=== PATIENT | female | born 1950 | race Caucasian/White ===

== ENCOUNTER 2018-05-03 07:49 | Day surgery (SDC) | payer OTHER ==
[2018-05-03] MEDS ORDERED: TETRACAINE HCL 0.5% 2ML OPTH ONE (08:29)
[2018-05-03] MEDS ORDERED: CYCLOPENTOLATE 1% OPTH 2 ML ONE (08:29)
[2018-05-03] MEDS ORDERED: LIDOCAINE 2% MPF 5 ML VIAL ONE (08:29)
[2018-05-03] MEDS ORDERED: PHENYLEPHRINE 10% OPTH 5ML ONE (08:30)
[2018-05-03] MEDS ORDERED: BUPIVACAINE 0.25% PF 30 ML VIAL ONE (08:30)
[2018-05-03] MEDS ORDERED: NA CHLORIDE 0.9% 500 ML ONE (08:30)
[2018-05-03] MEDS ORDERED: CYCLOPENTOLATE 1% OPTH 2 ML OPTH ONE ×2 (08:40→08:45)
[2018-05-03] MEDS ORDERED: PHENYLEPHRINE 10% OPTH 5ML OPTH ONE ×2 (08:40→08:45)
[2018-05-03] MEDS: DUOVISC 1 KIT OPTH ONE ×2 (09:37→10:19)
[2018-05-03] MEDS: EPINEPHRINE/PF 1 MG/ML AMP ONE ×2 (09:37→10:19)
[2018-05-03] MEDS: BSS PLUS 500 ML BOTTLE IRR ONE ×2 (09:37→10:19)
[2018-05-03] MEDS: MOXIFLOXACIN HCL 10 DROPS/ML **OR USE OPTH ONE ×2 (09:43→10:19)
[2018-05-03] MEDS ORDERED: LIDOCAINE 1% MPF 5 ML VIAL ONE (09:56)
[2018-05-03] MEDS ORDERED: PROPOFOL 200 MG/20 ML VIAL IV ONE (09:57)
--- NOTE | 2018-05-03 10:40 | P.BOP ---
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
--- NOTE | 2018-05-03 22:02 | OP ---
Date of Procedure: 05/03/2018 Surgeon: Margarita Newman MD Anesthesiologist: Shaun Camacho CRNA and Jenaro Mckeon M.D. Preoperative Diagnosis: Nuclear sclerotic cataract and cortical cataract and Fuchs dystrophy, OD (left eye). Operation Performed: Phacoemulsification with intraocular lens implant, OD eye. Anesthesia: Per cataract surgery. Complications: None. Description Of Procedure: In day surgery, the patient was prepped with Betadine and draped. A conjunctival incision was made in the inferior nasal quadrant with Tricia scissors. A sub-Tenon block consisting of a 1:1 mixture of 2% Xylocaine and 0.25% bupivacaine was placed through the conjunctival incision with a blunt cannula. A Honan balloon was placed over the eye and the patient was transferred to the operating room. In the operating room, the patient was prepped and draped in the usual sterile fashion for ophthalmic surgery. A lid speculum was placed in the OD. Two paracentesis sites were made superiorly and inferiorly in the limbal cornea. Viscoat was placed in the anterior chamber and a crescent blade was used to make a corneal groove and tunnel, and a keratome was used to enter the anterior chamber. Provisc was placed in the anterior chamber and a 360-degree capsulotomy was performed with a cystitome. The lens was hydrodissected with BSS and rotated freely. The lens was removed with a stop and chop technique. A 4.29 phaco CDE was used to remove the lens. Residual cortex was removed with the irrigation and aspiration. Provisc was placed in the capsular bag. A ZCB00 +24.0 diopter lens was placed in the capsular bag without complications. Irrigation and aspiration were used to remove residual viscoelastic. The paracentesis sites were hydrated with BSS. The wound and paracentesis sites were inspected and found to be watertight. Vigamox 0.07 cc was placed intracamerally at the end of the procedure. The eye was irrigated with balanced salt solution. The eye was patched with a soft cotton patch and Castano metal shield. The patient was returned to day surgery in good condition. Comments: BSS+ was used and a scleral incision was created. Discharge Instructions: Ms. Walker is discharged to home in good condition. She is to follow up Dr. Newman today at 3:30 and then in the morning. JHL/JORDAN Voice ID: [id number] Report ID: [id number] YASMIN
== END 2018-05-03 11:15 | disposition home or self-care (01) ==
LOC: OR 07:49
PROVIDERS: ATTEND Ophthalmology Retina Specialist
PROC: 08RK3JZ Replacement of Left Lens with Synthetic Substitute, Percutaneous Approach (ICD-10-PCS; principal; 2018-05-03 09:30)
DX: H25.12 Age-related nuclear cataract, left eye (principal); H25.012 Cortical age-related cataract, left eye; H18.51 Endothelial corneal dystrophy
CPT/HCPCS: 66984; J0171

== ENCOUNTER 2018-06-21 11:31 | Day surgery (SDC) | payer OTHER ==
[2018-06-21] MEDS ORDERED: PHENYLEPHRINE 10% OPTH 5ML ONE (11:55)
[2018-06-21] MEDS ORDERED: CYCLOPENTOLATE 1% OPTH 2 ML ONE (11:55)
[2018-06-21] MEDS ORDERED: NA CHLORIDE 0.9% 500 ML ONE ×2 (11:55→13:18)
[2018-06-21] MEDS ORDERED: CYCLOPENTOLATE 1% OPTH 2 ML OPTH ONE ×2 (12:08→12:13)
[2018-06-21] MEDS ORDERED: PHENYLEPHRINE 10% OPTH 5ML OPTH ONE ×2 (12:08→12:13)
[2018-06-21] MEDS: TETRACAINE HCL 0.5% 2ML OPTH ONE ×2 (12:16→13:06)
[2018-06-21] MEDS: LIDOCAINE 2% MPF 5 ML VIAL ONE ×2 (12:17→13:06)
[2018-06-21] MEDS ORDERED: EPINEPHRINE/PF 1 MG/ML AMP ONE (12:17)
[2018-06-21] MEDS: BUPIVACAINE 0.25% PF 10 ML VIAL ONE ×2 (12:17→13:06)
[2018-06-21] MEDS ORDERED: DUOVISC 1 KIT OPTH ONE (12:18)
[2018-06-21] MEDS ORDERED: BSS PLUS 500 ML BOTTLE IRR ONE (12:18)
[2018-06-21] MEDS ORDERED: MOXIFLOXACIN HCL 10 DROPS/ML **OR USE OPTH ONE (12:18)
[2018-06-21] MEDS ORDERED: NS 0.9% VIAL 10 ML ONE (12:21)
[2018-06-21] MEDS ORDERED: PROPOFOL 200 MG/20 ML VIAL IV ONE (13:09)
[2018-06-21] MEDS ORDERED: LIDOCAINE 2% MPF 5 ML VIAL ONE (13:09)
--- NOTE | 2018-06-21 13:53 | P.BOP ---
Preoperative diagnosis: Nuclear sclerotic and cortical cataract, Fuch's dystrophy OS Postoperative diagnosis: Same Primary procedure: Phacoemulsification with IOL OS Estimated blood loss: None Anesthesia: Local (Subtenon's infusion with anesthesia for cataract surgery) Complications: None Implants: ZCB00 +24.0 Transferred to: Other (Day surgery) Condition: Good
--- NOTE | 2018-06-22 01:26 | OP ---
Date of Procedure: 06/21/2018 Surgeon: Margarita Newman MD Anesthesiologist: 1. Ramana Mcintyre C.R.N.A. 2. Jenaro Mckeon M.D. Preoperative Diagnosis: Nuclear sclerotic cataract, cortical cataract, and Fuchs dystrophy, left eye . Operation Performed: Phacoemulsification with intraocular lens implant, left eye. Anesthesia: Per cataract surgery. Complications: None. Description Of Procedure: In day surgery, the patient was prepped with Betadine and draped. A conju nctival incision was made in the inferior nasal quadrant with Tricia scissors. A sub-Tenon block c onsisting of a 1:1 mixture of 2% Xylocaine and 0.25% bupivacaine was placed through the conjunctival incision with a blunt cannula. A Honan balloon was placed over the eye and the patient was transferr ed to the operating room. In the operating room the patient was prepped and draped in the usual sterile fashion for ophthalmic surgery. A lid speculum was placed in the left eye. Two paracentesis sites were made superiorly and inferiorly in the limbal cornea. Viscoat was placed in the anterior chamber and a crescent blade wa s used to make a corneal groove and tunnel, and a keratome was used to enter the anterior chamber. P rovisc was placed in the anterior chamber and a 360 degree capsulotomy was performed with a cystitome . The lens was hydrodissected with BSS and rotated freely. The lens was removed with a stop and cho p technique. 3.99 Phaco CDE was used to remove the lens. Residual cortex was removed with the irrig ation and aspiration. Provisc was placed in the capsular bag. A ZCB00 + 24.[address] in the capsular bag without complications. Irrigation and aspiration were used to remove residual viscoelastic. The paracentesis sites were hydrated with BSS. The wound and paracentesis sites were inspected and found to be watertight. Vigamox 0.07 cc was placed intracamerally at the end of the pr ocedure. The eye was irrigated with balanced salt solution. The eye was patched with a soft cotton patch and Castano metal shield. The patient was returned to day surgery in good condition. Comments: BSS Plus was used. The conjunctiva was incised temporally with Tricia scissors. Bipola r cautery was used for hemostasis. The scleral incision was created. Extra Viscoat was used. Bipol ar cautery was used to reapproximate the conjunctiva at the end of the procedure. Discharge Instructions: Ms. Walker is discharged to home in good condition and is to follow up with Candice Newman this afternoon, and then in the morning. RAJNI/JORDAN Voice ID: [id number] Report ID: [id number]
== END 2018-06-21 14:20 | disposition home or self-care (01) ==
LOC: OR 11:31
PROVIDERS: ATTEND Ophthalmology Retina Specialist
PROC: 08RK3JZ Replacement of Left Lens with Synthetic Substitute, Percutaneous Approach (ICD-10-PCS; principal; 2018-06-21 11:30)
DX: H25.12 Age-related nuclear cataract, left eye (principal); H25.012 Cortical age-related cataract, left eye; H18.51 Endothelial corneal dystrophy; H40.24 Residual stage of angle-closure glaucoma; E07.9 Disorder of thyroid, unspecified; E78.00 Pure hypercholesterolemia, unspecified; Z83.511 Family history of glaucoma
CPT/HCPCS: 66984; J0171

== ENCOUNTER 2025-02-27 13:35 | Day surgery (SDC) | payer OTHER ==
[2025-02-09 16:07] LABS: Absolute Eosinophils 0.1 K/uL (0-0.5); Absolute Lymphocytes (CBC) 2.2 K/uL (0.7-4.9); Absolute Monocytes 0.4 K/uL (0.1-1.3); Absolute Neutrophil 3.7 K/uL (1.8-8.0); Basophils % 0.5 % (0-1.3); Eosinophils % 1.7 % (0-4.4); Hematocrit 36.1 % (36.0-45.0); Hemoglobin 12.1 g/dL (12.0-15.0); Lymphocytes % 34.1 % (15.3-44.8); MCH 29.1 pg (27.0-35.0); MCHC 33.6 g/dL (32.0-36.0); MCV 86.5 fL (80-100); Monocytes % 6.3 % (3.3-12.3); Neutrophils % 57.4 % (41.7-73.7); Platelets 215 thou/uL (152-406); RBC Red Blood Cell Count 4.17 M/uL (3.86-4.86); Red Cell Distribution Width 14.8 % (12.1-15.2)
[2025-02-09 16:09] LABS: Anion Gap 9.2 mEq/L (5.0-15.0); Potassium 3.2 mEq/L (3.5-5.1)
[2025-02-09 16:11] LABS: PT Prothrombin Time 11.4 SECONDS (10-13.0); PTT, Activated Partial Thromb 31.5 SECONDS (27.2-37.4)
--- NOTE | 2025-02-09 16:32 | RAD REPORT ---
Procedure: Chest Pa And Lat (2 Views) HISTORY: Preop for cardiac catheterization. History of Aortic stenosis. COMPARISON: none FINDINGS: The lungs appear clear of acute infiltrate. No significant pleural effusion noted. The heart is normal size. IMPRESSION: No acute abnormality is displayed.
--- NOTE | 2025-02-13 11:33 | EKG ---
Test Date: 2025-02-09 Test Time: 15:23:29 Furnace Room Supervisor: SUHAIL MEASUREMENT RESULTS: Intervals: Rate: 71 IA: 176 QRSD: 84 QT: 412 QTc: 447 Tye: P: 69 IA: 176 QRS: 85 T: 72 INTERPRETIVE STATEMENTS: Normal sinus rhythm Normal ECG Compared to ECG 02/20/1992 07:57:00 No significant changes Electronically Signed On 02-13-25 11:23:44 CDT by Jose Capps
[2025-02-27] MEDS ORDERED: LIDOCAINE 1% 20 ML MDV ONE (14:59)
[2025-02-27] MEDS ORDERED: ATROPINE SULF 1 MG/10 ML SYR IV ONE (14:59)
[2025-02-27] MEDS ORDERED: HEPA 1000U/500MLS 1,000 UNIT/500 ML BAG IV ONE (14:59)
[2025-02-27] MEDS ORDERED: HEPARIN 10,000 UNIT/10 ML VIAL IV ONE (14:59)
[2025-02-27] MEDS ORDERED: CLOPIDOGREL 75 MG TABLET ONE (15:00)
[2025-02-27] MEDS ORDERED: TICAGRELOR 90 MG TABLET PO ONE (15:00)
[2025-02-27] MEDS ORDERED: HEPARIN 5000 UNIT/ML 1 ML VIAL ONE (15:00)
[2025-02-27] MEDS ORDERED: ASPIRIN 325 MG TAB ONE (15:00)
[2025-02-27] MEDS ORDERED: NALOXONE 0.4 MG/ML VIAL ONE (15:00)
[2025-02-27] MEDS ORDERED: VERAPAMIL HCL 10 MG/4 ML VIAL IV ONE (15:00)
[2025-02-27] MEDS ORDERED: FLUMAZENIL 0.1 MG/ML (5 mL VIAL) IV ONE (15:00)
[2025-02-27] MEDS ORDERED: MIDAZOLAM HCL 2 MG/2 ML INJ ONE (15:47)
[2025-02-27] MEDS ORDERED: FENTANYL CITR 100 MCG/2 ML ONE (15:47)
[2025-02-27] MEDS: NA CHLORIDE 0.9% 500 ML ONE (15:51)
[2025-02-27] MEDS ORDERED: NA CHLORIDE 0.9% 500 ML ONE (16:05)
[2025-02-27] MEDS ORDERED: HYDRALAZINE HCL 20 MG/ML VIAL ONE (16:39)
[2025-02-27 18:24] VITALS: O2SAT 99
[2025-02-27 19:09] VITALS: BP 140/60
--- NOTE | 2025-02-28 02:12 | OP ---
Date of Procedure: 02/27/2025 Surgeon: LC WAYNE Procedures Performed: 1. Selective coronary angiogram. 2. Left heart catheterization. 3. Right heart catheterization. Indication: Aortic valve stenosis evaluation. Access: 1. Right radial artery 6-Tanzanian, closed with TR band. 2. Right IJ 7-Tanzanian, closed with manual pressure. Complications: None. Bleeding: Less than 50 mL. Total Sedation Time: 1 hour, used fentanyl and Versed. Description Of Procedure: After risks, benefits, and alternatives were explained, patient agreed to procedure, signed informed consent. The patient was brought into cardiac catheterization laboratory, prepped and draped in usual sterile fashion. Then, I accessed right radial artery using pediatric m icropuncture kit and ultrasound guidance. Then, placed 6-Tanzanian Slender sheath and accessed right IJ using ultrasound guidance and micropuncture kit and placed 7-Tanzanian pinnacle sheath and took a ballo on tip 7-Tanzanian swan catheter through the IJ access into the right atrium, right ventricle, pulmonary artery, and wedge, and obtained waveform and pressure and then measured cardiac output by thermodilu tional method. Then, removed the Dubois and IJ access was removed. Manual pressure was used for closu re with good hemostasis and then access then I took 5-Tanzanian Glasgow 4 catheter through the radial willa ry into the aortic root over a J-wire, engaged left main, took standard views and then the RCA, took standard views and then across the aortic valve and exchanged for a Montrell catheter and measured si multaneous pressure of the aorta and the LV and obtained a gradient and valve area and then pullback did not record any internal gradient. Then, the catheter was removed, sheath was removed, and TR ban d was used for closure with good hemostasis. Findings: Coronary angiogram: 1. Left main is normal. 2. LAD is normal proximal segment; mid segment, there is focal 20% stenosis; rest of the LAD is jonathan l, normal diagonal branches. 3. Left circumflex is nondominant and normal. 4. RCA: It is dominant with mid 30%. Right heart catheterization numbers: RA pressure is 6, RV pressure is 32/1, mean of 8, PA pressure i s 29/30, mean of 19. Pulmonary wedge pressure was 9 and LVEDP was 21 mmHg. Conclusions: 1. Mild nonobstructive coronary artery disease. 2. Severe aortic valve stenosis. Recommendation: Aortic valve replacement. SR/MODL Voice ID: [id number] Report ID: [id number]
== END 2025-02-27 19:15 | disposition home or self-care (01) ==
LOC: CCL 13:35
PROVIDERS: ATTEND Internal Medicine
DX: I35.0 Nonrheumatic aortic (valve) stenosis (principal); I25.10 Atherosclerotic heart disease of native coronary artery without angina pectoris; I65.23 Occlusion and stenosis of bilateral carotid arteries; I10 Essential (primary) hypertension; E78.2 Mixed hyperlipidemia; Z79.899 Other long term (current) drug therapy
CPT/HCPCS: 93005; 85025; 80048; 36415; 85610; 85730; 71046; 93460; 76937; C1893; Q9966; J1644; J0360; J2003; J2250; J3010; J7040 ×2; 99152; 99153; J0461; J2310